=== PATIENT | female | born 1985 | race Caucasian/White ===

== ENCOUNTER 2017-12-02 23:55 | Inpatient (IN) | payer BC, SELFPAY ==
[2017-12-03 00:30] LABS: Hematocrit 34.4 % (37-47); Hemoglobin 11.4 g/dl (12.0-15.0); Mean Corp Hgb Conc 33.1 g/gl (32-36); Mean Corpuscular Hgb 28.7 pg (27.0-32.0); Mean Corpuscular Volume 86.6 fL (81-99); Mean Platelet Vol. 10.2 fl (6.2-12.0); Platelet Count 197 K/mm3 (150-450); RBC Distribution Width SD 39.8 fl (35.1-43.9); Red Blood Count 3.97 M/mm3 (4.2-5.4); White Blood Count 12.2 K/mm3 (4.4-11.0)
[2017-12-03 00:38] LABS: Scan Indicated on CBC? Y/N NO
--- NOTE | 2017-12-03 00:38 | PCM.HP.OB ---
History Date of Admission: 12/03/17 Final WANDY: 12/03/17 Gestational age: 40 Weeks and 0 Days History of this : This is a 32 year-old, G [], P [], at weeks gestational age. Allergies Sulfa (Sulfonamide Antibiotics) Adverse Reaction (Verified 11/01/14 17:53) Hives Home Medications: Home Medications Vits [Prenatabs FA ] 1 tablet PO DAILY 11/01/14 Smoking Status: Never smoker History Past Pregnancies: Past Pregnancies Delivery Date Name GA/Weeks Outcome Route Weight Gender Labor Length Anesthesia Delivery Location Provider FOB Labs: see [facility] H&P GBS negative Physical Exam General: Alert, Oriented x3 Abdomen: Soft, Non Tender, Non-Distended, Gravid Cervix Dilation (cm): 9.5 Station: 1 Effacement (%): 100 Assessment/Plan 32yo female presents in labor MOD - counseling extensively during & desires . Declines repeat . GBS negative EFW less than 4500g, adequate pelvis Pain - nitrous gas Routine care
--- NOTE | 2017-12-03 00:44 | HP.PCM_ITS ---
History Date of Admission: 12/03/17 Final WANDY: 12/03/17 Gestational age: 40 Weeks and 0 Days History of this : This is a 32 year-old, G [], P [], at weeks gestational age. Allergies Sulfa (Sulfonamide Antibiotics) Adverse Reaction (Verified 11/01/14 17:53) Hives Home Medications: Home Medications Vits [Prenatabs FA ] 1 tablet PO DAILY 11/01/14 Smoking Status: Never smoker History Past Pregnancies: Past Pregnancies Delivery Date Name GA/Weeks Outcome Route Weight Gender Labor Length Anesthesia Delivery Location Provider FOB Labs: see [facility] H[facility]P GBS negative Physical Exam General: Alert, Oriented x3 Abdomen: Soft, Non Tender, Non-Distended, Gravid Cervix Dilation (cm): 9.5 Station: 1 Effacement (%): 100 Assessment/Plan 32yo female presents in labor MOD - counseling extensively during & desires . Declines repeat c -section. GBS negative EFW less than 4500g, adequate pelvis Pain - nitrous gas Routine care
[2017-12-03] MEDS: Lactated Ringers 1,000 ML 50 ML IV (01:00)
[2017-12-03] MEDS: Oxytocin 30 units/NS 500 ml 30 UNITS/500 ML IV.SOLN 334 UNITS IV (01:19)
--- NOTE | 2017-12-03 01:34 | PCM.OB.VAG ---
Vaginal Delivery Maternal Presentation: Active Labor Amniotic Membrane Rupture Type: Spontaneous at home Amniotic Fluid Description: Clear Final WANDY: 12/03/17 Gestational age: 40 Weeks and 0 Days Date of Procedure: 12/03/17 Pre-Operative Diagnosis: Post-Operative Diagnosis: Surgery/ Procedure Performed: Spontaneous Vaginal Delivery Description of Procedure: Patient was ant lip/c/+1 and feeling lots of pressure. She pushed with 1 ctx & anterior lip reduced. Patient then c/c/+1. She was prepped & draped in stirrups. Patient pushed to deliver head. Gentle traction placed on head to allow delivery of anterior & posterior shoulders. No excess traction placed on head. Body delivered & infant placed on maternal abdomen. 3vc clamped & cut in delayed fashion. Placenta delivered with gentle traction. Good uterine tone obtained. Presentation: GIRISH Placental Delivery Description: Expressed Placenta Disposition: [facility] Cord Vessel Description: 3 Vessels Estimated Blood Loss: 200ml A gender: Female (1 minute): 9 (5 minute): 10 Episiotomy Description: None Laceration: None Medications given after delivery: IV Pitocin Complications: None
[2017-12-03] MEDS: Oxytocin 30 units/NS 500 ml 30 UNITS/500 ML IV.SOLN 167 UNITS IV (01:49)
[2017-12-03 02:00] VITALS: BMI 34.6
[2017-12-03 08:49] VITALS: BP 128/78; PULSE 82; RESP 20; TEMP 36.6
[2017-12-03 12:00] VITALS: BP 120/68; PULSE 98; RESP 18; TEMP 36.4
[2017-12-03 16:55] VITALS: BP 135/86; PULSE 83; RESP 18; TEMP 36.3
[2017-12-03 20:05] VITALS: BP 132/82; PULSE 88; RESP 17; TEMP 36.5
[2017-12-03 23:45] VITALS: BP 119/83; PULSE 88; RESP 17; TEMP 35.6
[2017-12-04 03:35] VITALS: BP 118/78; PULSE 97; RESP 17; TEMP 35.9
[2017-12-04 09:27] VITALS: BP 141/82; PULSE 78; RESP 18; TEMP 36.2
--- NOTE | 2017-12-04 10:29 | DCINST_ITS ---
Discharge Diet: No Restrictions Discharge Activity: Return to Normal Activity, May not drive while taking narcotic pain medications., May Shower May resume sexual activity in: 4-6 weeks Weight Bearing Status: Weight bearing as tolerated Call your doctor if your incision/area has: Continuous Slow Oozing, Sudden Increased Bleeding, Increased Pain/ Swelling, Increased Redness, Foul Smelling Discharge Call your doctor if you observe: Fever of 101 or Higher, Inability to urinate, Inability to have a bowel movement, Using more than one pad per hour, Shortness of breath, Chest pain, Increased palpitations (irregular heartbeat), Calf discomfort, Uncontrolled pain Additional Instructions: If you experience any of the following, contact your healthcare provider. * Bleeding that soaks a pad every hour for 2 hours * Fever 100.4 or higher * Unrelieved incision or abdominal pain * Swelling, redness, discharge or bleeding from your incision or episiotomy site * Your incision begins to separate * Problems urinating (including inability to urinate or burning while urinating) . * Visual changes * Severe headache * Flu-like symptoms * Pain or redness in one of both of your breasts * Pain, warmth, tenderness or swelling in your legs, especially the calf area * Frequent nausea and vomiting * Symptoms of depression or anxiety If you experience any of the following, call 911 or go to the nearest Emergency Room. * Chest pain * Problems breathing * Seizure activity * Partial or complete paralysis of a body part, slurred speech, weakness or drooping of the face, or a sudden inability to walk or hold your balance Allergies/Adverse Reactions: Allergies Sulfa (Sulfonamide Antibiotics) Adverse Reaction (Verified 12/03/17 01:58) Hives Medications to take at Discharge Vits [Prenatabs FA ] 1 tablet PO DAILY 11/01/14 Acetaminophen [Tylenol] 1,000 mg PO Q8H PRN PRN #0 tablet 12/04/17 Please Follow Up With: Mari Whittaker When: Call to make an appointment with your doctor in 6 weeks. If you had elevated Blood Pressure or 4th degree laceration you will need to be seen in 2 weeks. Test Results: Test results from this visit will be discussed in further detail at your follow- up appointment, if applicable.
--- NOTE | 2017-12-04 10:29 | PCM.PN.OB ---
Subjective: Doing well per patient and nursing staff. Ambulating and taking PO without difficulty. Voiding and passing flatus. Denies headache, visual changes, chest pain, shortness of breath, leg pain, increased vaginal bleeding or pain. without difficulty. Planning D/C home today. - Physical Exam General: Alert, Oriented x3, Cooperative Lungs: Clear to auscultation, Normal air movement, No rhonchi, No wheeze Cardiovascular: Regular rate, Regular Rhythm, No murmurs Abdomen: Bowel Sounds Present, Soft, Non Tender, - - Fundus firm 2 below U Extremities: No edema, - - Radha's negative Psych/Mental Status: Normal Affect, Appropriate Vital Signs Temp Pulse Resp BP 97.2 F L 78 18 141/82 H 12/04/17 09:27 12/04/17 09:27 12/04/17 09:27 12/04/17 09:27 Oxygen Delivery Method Room Air Weight: 208 lb 3.2 oz Body Mass Index (BMI) 34.6 Intake and Output for Last 24 Hours 12/02/17 12/03/17 12/04/17 23:59 23:59 23:59 Output Total 1100 / 1100 Balance -1100 / -1100 Medical Necessity - Tobacco Use Smoking Status: Never smoker Assessment/Plan A:PPD#1 P: 1) D/C and instructions given 2) D/C home today 3) Follow up in 6 weeks for visit. 4) Declines pain medication prescription upon discharge
[2017-12-04 10:31] VITALS: BP 121/76; TEMP 36.2
--- NOTE | 2017-12-10 16:06 | NURSING ---
attempted follow up phone call, mailbox full
== END 2017-12-04 11:15 | disposition home or self-care (01) | DRG 775 ==
PROVIDERS: Admitting Provider Obstetrics & Gynecology; Visit Provider Obstetrics & Gynecology
DX: O34.219 Maternal care for unspecified type scar from previous cesarean delivery (principal); Z37.0 Single live birth; Z3A.40 40 weeks gestation of pregnancy
CPT/HCPCS: 59050; 85027; 86850; 86900; 99218; J7120; G0378